=== PATIENT | female | born 1985 | race Caucasian/White ===

== ENCOUNTER 2019-04-03 09:27 | Emergency (ER) | payer OTHER ==
[~2019-04-03] VITALS: Ht 170.2 cm; Wt 69.4 kg
[2019-04-03 09:27] VITALS: BP_SYST 150
--- NOTE | 2019-04-03 09:27 | NUR ---
BROUGHT BACK TO HALLWAY BED, TRIAGED. REPORT GIVEN TO EMERALD
--- NOTE | 2019-04-03 09:28 | NUR ---
Pt is here for detention chec, bib [place] [employer]. Pt has hx if DM and asthma, BS 88. Tanisha Samuels aware. Respirations even and unlabored, clear lung sounds bilaterally. Pt is alert and oriented x4, denied pain, VSS.
--- NOTE | 2019-04-03 09:30 | NUR ---
Dr. Garay at bedside to assess pt.
--- NOTE | 2019-04-03 09:45 | NUR ---
Patient given written and verbal discharge instructions and verbalizes understanding. ER MD discussed with patient the results and treatment provided. Patient in stable condition. ID arm band removed. Opportunity for questions provided and answered. Medication side effect fact sheet provided.
== END 2019-04-03 09:45 ==
LOC: SED 09:27
DX: Z02.89 Encounter for other administrative examinations (principal); J45.909 Unspecified asthma, uncomplicated; E11.9 Type 2 diabetes mellitus without complications
CPT/HCPCS: 82962; 99283